=== PATIENT | male | born 1995 | race Hispanic/Latino ===

== ENCOUNTER 2020-05-13 20:20 | Emergency (ER) | payer BC ==
--- NOTE | 2020-05-13 21:17 | Emergency Department Report ---
Blank Doc - Documentation Documentation: This is a 25-year-old male that presents with delusions/hallucinations and conor ing threats to others. Patient is sent with 1013 form from [facility] for mental health evaluation. This initial assessment/diagnostic orders/clinical plan/treatment(s) is/are subject to change based on patient's health status, clinical progression and re- assessment by fellow clinical providers in the ED. Further treatment and workup at subsequent clinical providers discretion. Patient/guardians urged not to elope from the ED as their condition may be serious if not clinically assessed and managed. Initial orders include: 1- Patient sent to MAIN ED for further evaluation and treatment 2- RN was notified to have patient be brought back. 3- RN was notified to keep patient as close range and observation until room available 4- Patient presents with substantial risk of imminent harm to self, appears to be so unable to care for his/her own physical health and safety as to create an imminently life-endangering crisis, and has committed/expressed life endangering crisis to self. Due to this and other complaints, patient is put on psych hold.
[2020-05-13 21:49] LABS: Basophils % (Auto) 0.3 % (0.0-1.8); Eosinophils # (Auto) 0.1 K/mm3 (0.0-0.4); Eosinophils % (Auto) 0.9 % (0.0-4.3); Hematocrit 47.5 % (35.5-45.6); Hemoglobin 16.4 gm/dl (11.8-15.2); Lymphocytes # (Auto) 3.7 K/mm3 (1.2-5.4); Lymphocytes % (Auto) 42.9 % (13.4-35.0); Mean Corpuscular HGB Conc 34 % (32-34); Mean Corpuscular Volume 91 fl (84-94); Monocytes # (Auto) 0.6 K/mm3 (0.0-0.8); Monocytes % (Auto) 7.4 % (0.0-7.3); Platelet Count 278 K/mm3 (140-440); Red Blood Count 5.25 M/mm3 (3.65-5.03); Red Cell Distribution Width 12.9 % (13.2-15.2)
[2020-05-13 22:06] LABS: BUN/Creatinine Ratio 14; Blood Urea Nitrogen 15 mg/dL (9-20); Calcium 9.5 mg/dL (8.4-10.2); Hemolysis Index 6
--- NOTE | 2020-05-13 23:02 | Emergency Department Report ---
ED Psych HPI - General Chief Complaint: Psych Stated Complaint: MH EVAL/ Time Seen by Provider: 05/13/20 21:13 Source: patient Mode of arrival: Ambulatory - History of Present Illness Initial Comments: Chief complaint: "I did not threaten anybody." HPI: This is a 25-year-old male with history of bipolar disorder, schizophrenia, methamphetamine abuse, alcohol dependence who presents from [facility] for reports of delusional thought patterns. Patient also had reported hallucinations. He appeared to be responding to internal stimuli. He made threats to other clients. Due to bizarre behavior, 1013 form was completed by NPC at [facility]. He was transported to the emergency department. Patient denies threatening to harm anyone. He states that he does not take psychotropic medications because he has been "cured" from bipolar disorder and schizophrenia. He denies any physical concerns. He desires something to drink at this time. Patient states that he has been treated at [facility] for the past week. He admits to using crystal methamphetamine and alcohol. Patient admits to previous suicide attempt in the past. MD Complaint: other (Bizarre behavior, responding to internal stimuli) -: days(s) (Several days), unknown Associated Psychiatric Symptoms: racing thoughts, auditory hallucinations History of same: Yes Quality: constant Improves With: none Worsens With: none Context: recent drug abuse, not taking psychiatric Associated Symptoms: denies other symptoms Treatments Prior to Arrival: none - Related Data Allergies Allergy/AdvReac Type Severity Reaction Status Date / Time No Known Allergies Allergy Verified 05/13/20 21:21 ED Review of Systems ROS: Stated complaint: MH EVAL/ Other details as noted in HPI Comment: All other systems reviewed and negative Constitutional: denies: fever, malaise Respiratory: denies: cough, shortness of breath Gastrointestinal: denies: abdominal pain, nausea, vomiting ED Past Medical Hx - Past Medical History Previous Medical History?: No - Surgical History Past Surgical History?: No - Social History Smoking Status: Current Every Day Smoker Substance Use Type: Alcohol, Methamphetamines ED Physical Exam - General Limitations: No Limitations General appearance: alert, in no apparent distress, other (calm cooperative) - Head Head exam: Present: atraumatic, normocephalic - Eye Eye exam: Present: normal appearance - ENT ENT exam: Present: mucous membranes moist - Neck Neck exam: Present: normal inspection, full ROM - Respiratory Respiratory exam: Present: normal lung sounds bilaterally. Absent: respiratory distress, wheezes, rales, rhonchi - Cardiovascular Cardiovascular Exam: Present: regular rate, normal rhythm, normal heart sounds. Absent: systolic murmur, diastolic murmur, rubs, gallop - GI/Abdominal GI/Abdominal exam: Present: soft, normal bowel sounds - Rectal Rectal exam: Present: deferred - Extremities Exam Extremities exam: Present: normal inspection - Back Exam Back exam: Present: normal inspection - Neurological Exam Neurological exam: Present: alert, oriented X3 - Psychiatric Psychiatric exam: Present: normal mood, flat affect, other. Absent: homicidal ideation, suicidal ideation - Skin Skin exam: Present: warm, dry, intact, normal color. Absent: rash ED Course Vital Signs 05/13/20 21:16 Temperature 98.4 F Pulse Rate 100 H Respiratory 16 Rate Blood Pressure 139/92 O2 Sat by Pulse 97 Oximetry ED Medical Decision Making - Lab Data Result diagrams: 05/13/20 21:30 05/13/20 21:30 Laboratory Results - last 24 hr 05/13/20 05/13/20 05/13/20 21:30 21:30 21:30 WBC 8.5 RBC 5.25 H Hgb 16.4 H Hct 47.5 H MCV 91 MCH 31 MCHC 34 RDW 12.9 L Plt Count 278 Lymph % (Auto) 42.9 H Nicholas % (Auto) 7.4 H Eos % (Auto) 0.9 Baso % (Auto) 0.3 Lymph # (Auto) 3.7 Nicholas # (Auto) 0.6 Eos # (Auto) 0.1 Baso # (Auto) 0.0 Seg Neutrophils % 48.5 Seg Neutrophils # 4.1 Sodium 144 Potassium 4.1 Chloride 105.7 Carbon Dioxide 26 Anion Gap 16 BUN 15 Creatinine 1.1 Estimated GFR > 60 BUN/Creatinine Ratio 14 Glucose 113 H Calcium 9.5 Salicylates < 0.3 L Acetaminophen Plasma/Serum Alcohol 05/13/20 05/13/20 21:30 21:30 WBC RBC Hgb Hct MCV MCH MCHC RDW Plt Count Lymph % (Auto) Nicholas % (Auto) Eos % (Auto) Baso % (Auto) Lymph # (Auto) Nicholas # (Auto) Eos # (Auto) Baso # (Auto) Seg Neutrophils % Seg Neutrophils # Sodium Potassium Chloride Carbon Dioxide Anion Gap BUN Creatinine Estimated GFR BUN/Creatinine Ratio Glucose Calcium Salicylates Acetaminophen 5.0 L Plasma/Serum Alcohol < 0.01 - Medical Decision Making Patient this is a 25-year-old male with history of bipolar disorder, schizophrenia, methamphetamine abuse and alcohol use who presents with reported delusional thought pattern as well as auditory hallucinations. Patient has had bizarre behavior. He also made threats to harm others at the [place] detox center. Due to poor anxiety and inability to contract for safety, I have completed 1013 form in order to expedite involuntary hold. I have reviewed labs obtained include CBC chemistry serum toxicology. All labs are within normal limits. Patient is medically clear for psychiatric care. Awaiting treatment recommendations by psychiatric team. Critical care attestation.: If time is entered above; I have spent that time in minutes in the direct care of this critically ill patient, excluding procedure time. ED Disposition Clinical Impression: Acute psychosis, Violent behavior, Bipolar disorder, Schizophrenia, Methamphetamine abuse, Alcohol abuse Disposition: [id number] ANOTHER TYPE HLTHCARE Is pt being admited?: No Does the pt Need Aspirin: No Condition: Stable
[2020-05-13 23:49] LABS: Amphetamine Screen,Urine PRESUMPTIVE NEGATIVE; Benzodiazepines Screen,Urine PRESUMPTIVE NEGATIVE; Cannabinoid Screen,Urine PRESUMPTIVE NEGATIVE; Cocaine Screen,Urine PRESUMPTIVE NEGATIVE; Methadone Screen,Urine PRESUMPTIVE NEGATIVE; Opiate Screen,Urine PRESUMPTIVE NEGATIVE
[2020-05-14 00:04] LABS: Bilirubin,Urine NEG (Negative); Blood,Urine NEG (Negative); Color,Urine Yellow (Yellow); Protein,Urine <15 mg/dL mg/dL (Negative); Urobilinogen,Urine < 2.0 mg/dL (<2.0); WBC,Urine < 1.0 /HPF (0.0-6.0)
--- NOTE | 2020-05-14 09:42 | Consultation ---
History of Present Illness - Reason for Consult Consult date: 05/14/20 Reason for consult: psychosis - History of Present Psychiatric Illness Per ER note: "HPI: This is a 25-year-old male with history of bipolar disorder, schizophrenia, methamphetamine abuse, alcohol dependence who presents from [facility] for reports of delusional thought patterns. Patient also had reported hallucinations. He appeared to be responding to internal stimuli. He made threats to other clients. Due to bizarre behavior, 1013 form was completed by NPC at [facility]. He was transported to the emergency department. Patient denies threatening to harm anyone. He states that he does not take psychotropic medications because he has been "cured" from bipolar disorder and schizophrenia. He denies any physical concerns. He desires something to drink at this time." During my interview with 25y/o Ronen Meyer the patient is lying in bed, awake and a/ox 3. His affect is flat. He is slow to respond. The patient appears to responding to internal stimuli, although he denies hallucinations of any kind. He pauses as if listening to something in between questioning. He is acting sort of odd. He's cutting his eyes across the room at times. The patient states he is from the detox center and says he is unsure as to why they brought him here. He says "they didn't say why." When asking he patient was he having any behavioral issues, hallucinations or anything that would make someone feel as if they needed to bring him to the hospital, he replied "no." He admits to using "alcohol and meth" but states he's been clean for "four months." He says he was unsure of any meds that he's taking but states he's been current with them. He denies SI/HI. The patient says he's from [place], but been in [place] for 2 months for detox. PAST PSYCHIATRIC HISTORY Diagnoses: Bipolar, schizophrenia Suicide attempts or Self-harm behavior: twice Prior psychiatric hospitalizations: twice Substance Abuse history: Methamphetamines, alcohol Previous psychiatric medications tried: could not recall Outpatient treatment: Yes, [facility] PAST MEDICAL HISTORY: none reported Family Psychiatric History: None reported or documented SOCIAL HISTORY Marital Status: Single Living Arrangements: [facility] center Employment Status: Unemployed Access to guns/weapons: Denies Education: High school diploma History of Abuse: none reported Legal History: none reported REVIEW OF SYSTEMS Constitutional: Negative for weight loss ENT: Negative for stridor Respiratory: Negative for cough or hemoptysis All other systems reviewed and are negative MENTAL STATUS EXAMINATION General Appearance and Behavior: Age appropriate, good hygiene, wearing appropriate clothes, good eye contact, cooperative polite with questioning. Cooperation: Participating/engaged Psychomotor Behavior: unremarkable and within normal limits Mood: "good" Affect and affective range: congruent with mood Thought Process: slow to respond Thought Content: responding to internal stimuli Speech: Normal volume, Regular rate and rhythm, Suicidal Ideation: Denies Homicidal Ideation: Denies Hallucinations: Auditory Delusions: None elicited Impulse Control: Unimpaired Insight and Judgment: Limited insight and judgment, Memory: Normal, Attention: Normal, Orientation: Alert, oriented, Assessment and Plan (1) Schizophrenia Current Visit: Yes Status: Acute Treatment plan [address] 125mg po BID Start Seroquel 25mg po BID Start Trazodone 50mg po qhs Start Melatonin 5mg po qhs prn Sitter: Defer to primary Medical: per primary Disposition: Recommend acute psychiatric inpatient Will follow. Thank you for this consult Case staffed with Dr. Mclain Medications and Allergies Allergies Allergy/AdvReac Type Severity Reaction Status Date / Time No Known Allergies Allergy Verified 05/13/20 21:21 Home Medications Medication Instructions Recorded Confirmed Last Taken Type Unobtainable 05/14/20 05/14/20 Unknown History Mental Status Exam - Vital signs Last Vital Signs Temp 98.7 F 05/14/20 08:52 Pulse 85 05/14/20 08:52 Resp 18 05/14/20 08:52 BP 129/74 05/14/20 08:52 Pulse Ox 98 05/14/20 08:52 Results Result Diagrams: 05/13/20 21:30 05/13/20 21:30 Abnormal lab results 05/13/20 05/13/20 05/13/20 Range/Units 21:30 21:30 21:30 RBC 5.25 H (3.65-5.03) M/mm3 Hgb 16.4 H (11.8-15.2) gm/dl Hct 47.5 H (35.5-45.6) % RDW 12.9 L (13.2-15.2) % Lymph % (Auto) 42.9 H (13.4-35.0) % [place] % (Auto) 7.4 H (0.0-7.3) % Glucose 113 H (75-100) mg/dL Salicylates < 0.3 L (2.8-20.0) mg/dL Acetaminophen (10.0-30.0) ug/mL 05/13/20 Range/Units 21:30 RBC (3.65-5.03) M/mm3 Hgb (11.8-15.2) gm/dl Hct (35.5-45.6) % RDW (13.2-15.2) % Lymph % (Auto) (13.4-35.0) % [place] % (Auto) (0.0-7.3) % Glucose (75-100) mg/dL Salicylates (2.8-20.0) mg/dL Acetaminophen 5.0 L (10.0-30.0) ug/mL All other labs normal.
[2020-05-14] MEDS ORDERED: DIVALPROEX DR 125 MG TAB PO SCH (10:00)
[2020-05-14] MEDS ORDERED: QUEtiapine 25 MG TAB PO SCH (10:00)
[2020-05-14 15:12] VITALS: BP 140/77
[2020-05-14] MEDS ORDERED: MELATONIN 5 MG TAB PO PRN (22:00)
[2020-05-14] MEDS ORDERED: traZODone 50 MG TAB PO SCH (22:00)
== END 2020-05-14 15:10 | disposition other institution (70) ==
LOC: ED 20:20
DX: F23 Brief psychotic disorder (principal); R45.6 Violent behavior; F31.9 Bipolar disorder, unspecified; F17.200 Nicotine dependence, unspecified, uncomplicated; F15.10 Other stimulant abuse, uncomplicated
CPT/HCPCS: 36415; 80048; 80307; 80320; 81001; 85025; G0480